=== PATIENT | male | born 1965 | race Caucasian/White ===

== ENCOUNTER 2021-06-27 13:41 | Inpatient (IN) | payer BC ==
[~2021-06-27] VITALS: Ht 172.7 cm; Wt 115.1 kg
[2021-06-27 15:29] LABS: HEMOGLOBIN 13.3 gm/dl (14.0-17.5); RED BLOOD COUNT 4.62 M/UL (4.20-5.50); WHITE BLOOD COUNT 8.5 K/UL (4.5-11.0)
[2021-06-27 16:06] LABS: BUN/CREATININE RATIO 17 (0-10)
[2021-06-28 04:50] LABS: HEMOGLOBIN 11.5 gm/dl (14.0-17.5); RED BLOOD COUNT 4.03 M/UL (4.20-5.50); WHITE BLOOD COUNT 7.8 K/UL (4.5-11.0)
[2021-06-28 05:05] LABS: BUN/CREATININE RATIO 26 (0-10)
[2021-06-28] MEDS ORDERED: LEVEMIR FL100 UNIT/1 SQ (09:00)
[2021-06-28] MEDS ORDERED: ATORVASTATIN CA80 MG PO (09:01)
[2021-06-28] MEDS ORDERED: ASPIRIN EC81 MG PO (09:01)
[2021-06-28] MEDS ORDERED: DULOXETINE HCL30 MG PO (09:01)
[2021-06-28] MEDS ORDERED: JARDIANCE25 MG PO (09:03)
[2021-06-28] MEDS ORDERED: GLUCOTROL 10 MG10 MG PO (09:04)
[2021-06-28] MEDS ORDERED: LISINOPRIL10 MG PO (09:05)
[2021-06-28] MEDS ORDERED: METFORMIN HCL1000 MG PO (09:06)
[2021-06-28] MEDS ORDERED: OMEPRAZOLE40 MG PO (09:07)
[2021-06-28] MEDS ORDERED: NOVOLOG FL100 UNIT/1 SC ×2 (17:26→17:28)
[2021-06-28] MEDS ORDERED: CENTRUM COMPLE1 EACH PO (17:30)
[2021-06-29 07:08] LABS: HEMOGLOBIN 11.2 gm/dl (14.0-17.5); RED BLOOD COUNT 3.98 M/UL (4.20-5.50)
[2021-06-29 07:32] LABS: BUN/CREATININE RATIO 40 (0-10)
[2021-06-30 08:25] LABS: HEMOGLOBIN 11.7 gm/dl (14.0-17.5); RED BLOOD COUNT 4.2 M/UL (4.20-5.50); WHITE BLOOD COUNT 9.3 K/UL (4.5-11.0)
[2021-06-30 08:44] LABS: BUN/CREATININE RATIO 37 (0-10)
[2021-06-30] MEDS ORDERED: OMNICEF 300 MG300 MG PO (09:01)
[2021-06-30] MEDS ORDERED: AZITHROMYCIN250 MG PO (09:01)
[2021-06-30] MEDS ORDERED: PROAIR HFA8.5 GM INH (09:01)
[2021-06-30] MEDS ORDERED: MEDROL DOSEPAK 24 MG PO (09:01)
--- NOTE | 2021-06-30 09:44 | NUR ---
PATIENT ROOM AIR SAT 85%
--- NOTE | 2021-06-30 13:47 | NUR ---
patient with 026L via n/c
--- NOTE | 2021-06-30 13:48 | NUR ---
patient knowledgeable how to use pulse ox and 026L via nasal cannula.
== END 2021-06-30 13:27 | disposition home or self-care (01) | DRG 871 ==
LOC: ER1 13:41 → CDU 18:21 → M/S 06-28 18:52
PROVIDERS: Internal Medicine; Physician Assistant; ADMIT Internal Medicine
PROC: 3E0333Z Introduction of Anti-inflammatory into Peripheral Vein, Percutaneous Approach (ICD-10-PCS; principal; 2021-06-27)
PROC: XW033E5 Introduction of Remdesivir Anti-infective into Peripheral Vein, Percutaneous Approach, New Technology Group 5 (ICD-10-PCS; 2021-06-27)
DX: A41.89 Other specified sepsis (principal); U07.1 COVID-19; J12.82 Pneumonia due to coronavirus disease 2019; J96.01 Acute respiratory failure with hypoxia; E87.2 Acidosis; J90 Pleural effusion, not elsewhere classified; E87.1 Hypo-osmolality and hyponatremia; E66.9 Obesity, unspecified; E11.65 Type 2 diabetes mellitus with hyperglycemia; K21.9 Gastro-esophageal reflux disease without esophagitis; I10 Essential (primary) hypertension; Z80.1 Family history of malignant neoplasm of trachea, bronchus and lung; Z83.3 Family history of diabetes mellitus; Z79.899 Other long term (current) drug therapy; Z79.82 Long term (current) use of aspirin; Z79.84 Long term (current) use of oral hypoglycemic drugs
CPT/HCPCS: 36415; 36600; 71045; 71275; 80048; 80053; 82550; 82553; 82803; 82962; 83036; 83605; 83735; 83874; 84484; 85025; 85027; 87040; 93005; 94640; 94664; 94760; 96374; 96375; 99285; G0378; J0456; J0692; J0696; J1100; J1650; J7030; J7040; J7050; Q9967; U0002